=== PATIENT | male | born 1940 | race Caucasian/White ===

== ENCOUNTER 2017-05-28 20:15 | Inpatient (IN) | payer MEDICARE, MEDICAID ==
[~2017-05-28] VITALS: Ht 165.1 cm; Wt 79.4 kg
[2017-05-28] MEDS ORDERED: AMLO10TA2 PO (20:34)
[2017-05-28] MEDS ORDERED: BENA20TA2 PO (20:34)
[2017-05-28] MEDS ORDERED: LORA2TAB PO (20:34)
[2017-05-28] MEDS ORDERED: MEMA10TA PO (20:34)
[2017-05-28] MEDS ORDERED: ZOLP10TA2 PO (20:34)
[2017-05-28] MEDS ORDERED: LEVE500T20 PO (20:34)
--- NOTE | 2017-05-28 20:40 | NUR ---
DR. CROW AT BEDSIDE FOR MSE.
[2017-05-28] MEDS ORDERED: IV NORMAL SALINE 500 ML BAG IV ONE (20:45)
[2017-05-28 21:09] LABS: HEMATOCRIT 34.8 % (36.7-47.1); HEMOGLOBIN 11.6 g/dL (12.5-16.3); LYMPHOCYTES # (AUTO) 1.7 K/uL (20.0-40.0); LYMPHOCYTES % (AUTO) 39.6 % (20.5-51.5); MEAN CORPUSCULAR HEMOGLOBIN 28.6 uug (23.8-33.4); MEAN CORPUSCULAR HGB CONC 33 g/dL (32.5-36.3); MEAN CORPUSCULAR VOLUME 85.6 fL (73.0-96.2); MONOCYTES # (AUTO) 0.6 K/uL (2.0-10.0); MONOCYTES % (AUTO) 14.4 % (0.0-11.0); NEUTROPHILS # (AUTO) 1.9 K/uL (1.8-8.9); PLATELET COUNT (AUTO) 236 K/uL (152-348); RED BLOOD CELL COUNT(AUTO) 4.06 MIL/uL (4.06-5.63); WHITE BLOOD COUNT (AUTO) 4.2 K/uL (3.6-10.2)
[2017-05-28 21:23] LABS: CARBON DIOXIDE 26 mmol/L (21-32); CHLORIDE 98 mmol/L (98-107); CREATININE 1.2 mg/dL (0.6-1.3); ETHANOL < 3 MG/DL (0-0); GLUCOSE 95 mg/dL (74-106); POTASSIUM 4.5 mmol/L (3.5-5.1); UREA NITROGEN, BLOOD 11 mg/dL (7-18)
[2017-05-28 21:39] LABS: ACETAMINOPHEN < 2.0 ug/mL (10-30); ALANINE AMINOTRANSFERASE 30 U/L (16-63); ALKALINE PHOSPHATASE 74 U/L (50-136); ASPARTATE AMINOTRANSFERASE 43 U/L (15-37); BILIRUBIN,DIRECT 0.1 mg/dL (0.0-0.2); BILIRUBIN,TOTAL 0.3 mg/dL (0.2-1.0); THYROID STIMULATING HORMONE 2.404 mIU/mL (0.358-3.740); TOTAL PROTEIN, SERUM 7.6 g/dL (6.4-8.2)
[2017-05-28 21:52] LABS: *BILIRUBIN,URIN NEGATIVE (NEGATIVE); *BLOOD, URINE Trace-intact (NEGATIVE); *CLARITY,URINE CLEAR (CLEAR); *COLOR,URINE YELLOW (YELLOW); *KETONES,URINE NEGATIVE (NEGATIVE); *PROTEIN,URINE NEGATIVE (NEGATIVE); *UROBILINOGEN,URINE 0.2 E.U./dl (NORMAL); LEUKOCYTE ESTERASE ,URINE NEGATIVE (NEGATIVE); NITRITE, URINE NEGATIVE (NEGATIVE); PH,URINE 6.5 (5.0-8.0); UGLUCOSE NEGATIVE (NEGATIVE)
[2017-05-28 22:09] LABS: BACTERIA,URINE NONE SEEN /HPF (NONE SEEN); RBC,URINE 0-3 /HPF (0-3); SQUAMOUS EPITHELIAL CELL,UR FEW /HPF (NONE SEEN); WBC,URINE 0-3 /HPF (0-3)
[2017-05-28] MEDS ORDERED: ONDANSETRON 4 MG/2 ML VIAL IV PRN (22:15)
[2017-05-28] MEDS ORDERED: HYDROCODONE/APAP 5-325MG TABLET PO PRN (22:15)
[2017-05-28] MEDS ORDERED: Z GUARD REMEDY PASTE 57 GM TUBE TOP PRN (22:15)
[2017-05-28] MEDS ORDERED: CLONIDINE HCL 0.1 MG TABLET PO PRN (22:15)
[2017-05-28] MEDS ORDERED: Medication Not On Formulary EA (Zolpidem Tartrate (Ambien) 10 MG) PO PRN (22:15)
[2017-05-28] MEDS ORDERED: MAGNESIUM HYDROXIDE 30 ML LIQUID UDC PO PRN (22:15)
[2017-05-28] MEDS ORDERED: ACETAMINOPHEN 325 MG TABLET PO PRN (22:15)
--- NOTE | 2017-05-28 22:25 | NUR ---
GAVE REPORT TO GARRICK RYAN. PENDING TRANSFER TO TELE UNIT.
[2017-05-28] MEDS ORDERED: IV NORMAL SALINE 1000 ML BAG IV ONE (22:30)
--- NOTE | 2017-05-28 22:36 | NUR ---
ENDORSED TO FLOOR NURSE TO COMPLETE NS BOLUS INFUSION.
--- NOTE | 2017-05-28 22:40 | NUR ---
PT TRANSFERRED TO TELE UNIT.
--- NOTE | 2017-05-28 22:40 | NUR ---
Received pt to TELE unit. Orientated to the unit and use of call light. Patient A&Ox1 to name only.
[2017-05-28] MEDS: LORAZEPAM 2 MG/1 ML VIAL IV PRN (23:48)
[2017-05-28] MEDS: ASPIRIN 81 MG TAB.CHEW PO SCH (23:48)
[2017-05-29] VITALS: BP 162/85
[2017-05-29 00:36] LABS: *AMPHETAMINE, URINE NEGATIVE (NEGATIVE); *BARBITURATE, URINE NEGATIVE (NEGATIVE); *CANNABINOID, URINE NEGATIVE (NEGATIVE); *COCCAINE, URINE NEGATIVE (NEGATIVE); *OPIATE, URINE NEGATIVE (NEGATIVE); *PHENCYCLIDINE SCREEN,URINE NEGATIVE (NEGATIVE)
[2017-05-29] MEDS: IV NS 1000 ML 1,000 ML IV PRN (00:45)
[2017-05-29 04:00] VITALS: BP 187/86
--- NOTE | 2017-05-29 06:40 | NUR ---
Pt only slept 2 hours after Ativan was given. Has been up all night stating he's hungry but refusing any snacks we are offering him. Says he doesn't like milk or bread. Has ripped off Tele leads multiple times. At this time we placed them on his back and he has not pulled it off. Pt pulled off his IV on the left hand. Inserted a new IV to the right forearm. Continues on IV fluids. Pt has to urinate a lot and is always ripping off his diaper and trying to use the urinal, but cannot use it himself. Needs 1 person assist to help him use the urinal. Bed alarm on, call light within reach.
[2017-05-29 06:53] LABS: CARBON DIOXIDE 27 mmol/L (21-32); CHLORIDE 99 mmol/L (98-107); CHOLESTEROL 197 mg/dL (<200); GLUCOSE 83 mg/dL (74-106); HDL CHOLESTEROL 69 mg/dL (40-60); MAGNESIUM 1.9 mg/dL (1.8-2.4); PHOSPHOROUS 3.2 mg/dL (2.5-4.9); POTASSIUM 3.5 mmol/L (3.5-5.1); TRIGLYCERIDES 99 MG/DL (30-150); UREA NITROGEN, BLOOD 7 mg/dL (7-18)
[2017-05-29 06:57] LABS: BASOPHILS % (AUTO) 0.6 % (0.0-2.0); EOSINOPHILS % (AUTO) 1.2 % (0.0-7.0); LYMPHOCYTES # (AUTO) 1.5 K/uL (20.0-40.0); LYMPHOCYTES % (AUTO) 45.6 % (20.5-51.5); MEAN CORPUSCULAR HEMOGLOBIN 28.9 uug (23.8-33.4); MEAN CORPUSCULAR HGB CONC 34 g/dL (32.5-36.3); MEAN CORPUSCULAR VOLUME 85.7 fL (73.0-96.2); MONOCYTES # (AUTO) 0.4 K/uL (2.0-10.0); MONOCYTES % (AUTO) 13.3 % (0.0-11.0); NEUTROPHILS # (AUTO) 1.3 K/uL (1.8-8.9); NEUTROPHILS % (AUTO) 39.3 % (38.5-71.5); PLATELET COUNT (AUTO) 264 K/uL (152-348); RED BLOOD CELL COUNT(AUTO) 4.53 MIL/uL (4.06-5.63); WHITE BLOOD COUNT (AUTO) 3.3 K/uL (3.6-10.2)
[2017-05-29 07:11] LABS: HEMATOCRIT 38.8 % (36.7-47.1); HEMOGLOBIN 13.1 g/dL (12.5-16.3)
[2017-05-29] MEDS ORDERED: ZOLPIDEM 5 MG TABLET PO PRN (07:45)
--- NOTE | 2017-05-29 07:47 | NUR ---
Received pt in bed awake, alert and oriented to name only. Noted pt to be tapping both feet. No immediate s/s of pain, distress, discomfort or SOB. Morning BP was 178/77, HR 64 PRN Catapres given
[2017-05-29] MEDS: BENAZEPRIL HCL 20 MG TABLET PO SCH ×2 (09:00→09:28)
[2017-05-29] MEDS: AMLODIPINE 10 MG TABLET PO SCH ×2 (09:00→09:28)
--- NOTE | 2017-05-29 09:12 | NUR ---
Pt is sitting in the chair watching, state "i am bored, i need HBO". No immediate s/s of pain, distress, discomfort, or SOB.
[2017-05-29] MEDS: LEVETIRACETAM 500 MG TABLET PO SCH ×2 (09:24→15:45)
[2017-05-29] MEDS: ASPIRIN 81 MG TAB.CHEW PO SCH (09:24)
[2017-05-29] MEDS: MEMANTINE HCL 10 MG TABLET PO SCH ×2 (09:24→15:44)
--- NOTE | 2017-05-29 10:30 | NUR ---
Caregiver by bedside brought pt some jello and noted pt eating on his own. Neuro consult took place. Psychological consult made. Pt is sitting up in chair with no immediate distress
[2017-05-29 11:16] VITALS: BP 151/81
[2017-05-29 15:04] VITALS: BP 142/78
[2017-05-29] MEDS: LORAZEPAM 2 MG/1 ML VIAL IV PRN (19:45)
--- NOTE | 2017-05-29 19:45 | NUR ---
PATIENT AWAKE, SITTING IN CHRISTIN-CHAIR. APPEARS AGITATED. PATIENT PULLED OUT IV HEPLOCK. PATIENT IS ALERT TO SELF ONLY. VERY CONFUSED AND DISORIENTED. NEW IV INSERTED TO RIGHT AC #20 GAUGE. PATIENT GIVEN ATIVAN 1MG IV PRN PER USABILITY SPECIALIST. VS WNL. PATIENT DENIES PAIN OR DISCOMFORT. NO FACIAL GRIMACE NOTED. NO RESP. DISTRESS NOTED. CALL LIGHT IN REACH. ALL NEEDS ATTENDED. WILL CONTINUE TO MONITOR AND ASSESS.
[2017-05-29 20:00] VITALS: BP 140/68
[2017-05-29] MEDS: ATORVASTATIN 20 MG TABLET PO SCH (21:02)
--- NOTE | 2017-05-29 22:00 | NUR ---
PATIENT ASSISTED BACK TO BED. BED ALARM ON. IVF INFUSING WELL. CALL LIGHT IN REACH. ALL NEEDS ATTENDED. WILL CONTINUE TO MONITOR.
[2017-05-30] MEDS: IV NS 1000 ML 1,000 ML IV PRN ×2 (01:39→16:37)
[2017-05-30 05:08] VITALS: BP 153/76
--- NOTE | 2017-05-30 06:32 | NUR ---
PATIENT ASLEEP IN BED. SLEPT WELL. IVF INFUSING WELL. BED ALARM ON. CALL LIGHT IN REACH. ALL NEEDS ATTENDED. WILL CONTINUE TO MONITOR.
--- NOTE | 2017-05-30 07:04 | NUR ---
PATIENT VERY UNSTABLE FOR MRI PER NURSE TORSTEN,CHANGE OF SHIFT SHE MAKE SURE NURSE HENRIETTA AND DR. BEAUCHAMP WILL BE IMFORMED.
--- NOTE | 2017-05-30 07:30 | NUR ---
PATIENT RECEIVED ASLEEP IN BED.. IVF INFUSING WELL. BED ALARM ON. CALL LIGHT IN REACH. ALL NEEDS ATTENDED. WILL CONTINUE TO MONITOR.
[2017-05-30] MEDS: BENAZEPRIL HCL 20 MG TABLET PO SCH (08:11)
[2017-05-30] MEDS: ASPIRIN 81 MG TAB.CHEW PO SCH (08:11)
[2017-05-30] MEDS: AMLODIPINE 10 MG TABLET PO SCH (08:11)
[2017-05-30] MEDS: MEMANTINE HCL 10 MG TABLET PO SCH ×2 (08:11→16:27)
[2017-05-30] MEDS: LEVETIRACETAM 500 MG TABLET PO SCH ×2 (08:11→16:27)
[2017-05-30 11:07] VITALS: BP 121/64
--- NOTE | 2017-05-30 13:30 | NUR ---
PT IS CONFUSED REFUSING TO GO FOR MRI DR BEAUCHAMP MADE AWARE.
[2017-05-30 15:00] VITALS: BP 123/61
[2017-05-30 19:40] VITALS: BP 134/77
--- NOTE | 2017-05-30 20:00 | NUR ---
PATIENT AWAKE IN BED. ALERT TO SELF ONLY, CONFUSED. NEEDS REDIRECTION. DENIES PAIN OR DISCOMFORT. NO FACIAL GRIMACE NOTED. NO RESP. DISTRESS NOTED. VSS. IVF INFUSING WELL TO RIGHT UPPER ARM #20 GAUGE. BED ALARM ON. CALL LIGHT IN REACH. ALL NEEDS ATTENDED. WILL CONTINUE TO MONITOR AND ASSESS.
[2017-05-30] MEDS: ATORVASTATIN 20 MG TABLET PO SCH (20:27)
[2017-05-30] MEDS: LORAZEPAM 2 MG/1 ML VIAL IV PRN (21:56)
--- NOTE | 2017-05-30 22:00 | NUR ---
PATIENT APPEARS AGITATED. TRYING TO GET OOB AND PULLING ON IV. PATIENT GIVEN ATIVAN 1MG IV PER PER ADVERTISING MANAGER. BED ALARM ON. WILL CONTINUE TO MONITOR AND ASSESS.
--- NOTE | 2017-05-30 23:00 | NUR ---
PATIENT ASLEEP IN BED. BED ALARM ON. NO RESP. DISTRESS NOTED. WILL CONTINUE TO MONITOR.
[2017-05-31 04:35] VITALS: BP 153/72
--- NOTE | 2017-05-31 05:34 | NUR ---
PATIENT ASLEEP IN BED. EASILY AROUSABLE. SLEPT AT INTERVALS. IVF INFUSING WELL. BED ALARM ON. CALL LIGHT IN REACH. ALL NEEDS ATTENDED. WILL CONTINUE TO MONITOR.
[2017-05-31] MEDS: IV NS 1000 ML 1,000 ML IV PRN (07:21)
[2017-05-31] MEDS: ASPIRIN 81 MG TAB.CHEW PO SCH (08:01)
[2017-05-31] MEDS: MEMANTINE HCL 10 MG TABLET PO SCH ×2 (08:01→16:19)
[2017-05-31] MEDS: BENAZEPRIL HCL 20 MG TABLET PO SCH (08:01)
[2017-05-31] MEDS: LEVETIRACETAM 500 MG TABLET PO SCH ×2 (08:01→16:19)
[2017-05-31] MEDS: AMLODIPINE 10 MG TABLET PO SCH (08:02)
[2017-05-31 11:05] VITALS: BP 136/64
[2017-05-31 15:19] VITALS: BP 158/79
--- NOTE | 2017-05-31 19:15 | NUR ---
RECEIVED PT AWAKE, ALERT , ORIENTED X2. PT SHOWS NO SIGNS OF DISTRESS. PT NO IV ACCESS. CALL LIGHT WITHIN REACH. BED ALARM ON AND IN LOW POSITION. WILL CONTINUE TO MONITOR.
[2017-05-31 20:12] VITALS: BP 130/65
[2017-05-31] MEDS: ATORVASTATIN 20 MG TABLET PO SCH (20:43)
[2017-05-31] MEDS ORDERED: ATORVASTATIN 20 MG TABLET PO SCH (21:00)
[2017-06-01 05:19] VITALS: BP 125/62
--- NOTE | 2017-06-01 06:12 | NUR ---
PT SLEPT THROUGHOUT THE SHIFT. PT SHOWS NO SIGNS OF DISTRESS.CHARGE NURSE AWARE THAT PT HAS NO IV ACCESS. PT VITAL SIGNS WITHIN NORMAL LIMIT. PRESCRIBED MEDICATION GIVEN AND PT TOLERATED IT WELL. CALL LIGHT WITHIN REACH, BED ALARM ON AND IN LOW POSITION. SIDE RAILSX2. WILL ENDORSE TO DAYSHIFT NURSE.
--- NOTE | 2017-06-01 07:30 | NUR ---
Received report from night order selector nurse, patient in bed sleeping, no distress noted at this time, bed in low position, side rails upx2, bed alarm on.
[2017-06-01] MEDS: MEMANTINE HCL 10 MG TABLET PO SCH ×2 (08:34→16:17)
[2017-06-01] MEDS: LEVETIRACETAM 500 MG TABLET PO SCH ×2 (08:34→16:17)
[2017-06-01] MEDS: AMLODIPINE 10 MG TABLET PO SCH (08:34)
[2017-06-01] MEDS: ASPIRIN 81 MG TAB.CHEW PO SCH (08:34)
[2017-06-01] MEDS: BENAZEPRIL HCL 20 MG TABLET PO SCH (08:35)
[2017-06-01 11:27] VITALS: BP 143/71
[2017-06-01] MEDS ORDERED: ATOR20TA PO (13:10)
[2017-06-01] MEDS ORDERED: ASPI81TA31 PO (13:10)
[2017-06-01 15:47] VITALS: BP 152/78
--- NOTE | 2017-06-01 18:51 | NUR ---
Patient was discharged after report called to [place], ([place]). Patient has no distress, all needs met, discharge education given to patient.
== END 2017-06-01 18:55 | DRG 640 ==
LOC: ER 20:18 → TELE 22:29 → MED 05-29 16:42
PROVIDERS: ADMIT Internal Medicine; ATTEND Internal Medicine
DX: E86.0 Dehydration (principal); G93.40 Encephalopathy, unspecified; G30.9 Alzheimer's disease, unspecified; G40.909 Epilepsy, unspecified, not intractable, without status epilepticus; F02.80 Dementia in other diseases classified elsewhere, unspecified severity, without behavioral disturbance, psychotic disturbance, mood disturbance, and anxiety; E87.1 Hypo-osmolality and hyponatremia; Z86.73 Personal history of transient ischemic attack (TIA), and cerebral infarction without residual deficits; R32 Unspecified urinary incontinence; E78.5 Hyperlipidemia, unspecified; I10 Essential (primary) hypertension; Z79.82 Long term (current) use of aspirin; Z79.899 Other long term (current) drug therapy
CPT/HCPCS: 36415; 70030-TC; 70450; 71045; 80307; 83605; 83735; 84100; 84443; 85025; 85730; 87040; 93005; A4663; G0480; G0480-TC; J2060; J7030; J7040

== ENCOUNTER 2017-06-21 14:13 | Inpatient (IN) | payer MEDICAID, MEDICARE ==
[~2017-06-21] VITALS: Ht 182.9 cm; Wt 79.4 kg
[~2017-06-21 14:13] MED LIST: AMLO10TA2 PO; ASPI81TA31 PO; ATOR20TA PO; BENA20TA2 PO; LEVE500T20 PO; LORA2TAB PO; MEMA10TA PO
[2017-06-21] MEDS ORDERED: IV NORMAL SALINE 1000 ML BAG IV ONE (14:30)
[2017-06-21] MEDS ORDERED: ZOLP10TA2 PO (14:38)
[2017-06-21] MEDS ORDERED: PROSTAT SF PO (14:38)
[2017-06-21] MEDS ORDERED: MULT-213 PO (14:38)
[2017-06-21] MEDS ORDERED: LORA-259 PO (14:38)
[2017-06-21] MEDS ORDERED: ASCO500C16 PO (14:38)
[2017-06-21] MEDS ORDERED: LACT-215 PO (14:38)
[2017-06-21 14:44] LABS: BASOPHILS % (AUTO) 0.4 % (0.0-2.0); EOSINOPHILS % (AUTO) 0.1 % (0.0-7.0); HEMATOCRIT 35.7 % (36.7-47.1); HEMOGLOBIN 11.8 g/dL (12.5-16.3); LYMPHOCYTES % (AUTO) 16.5 % (20.5-51.5); MEAN CORPUSCULAR HEMOGLOBIN 28.3 uug (23.8-33.4); MEAN CORPUSCULAR HGB CONC 33 g/dL (32.5-36.3); MEAN CORPUSCULAR VOLUME 85.4 fL (73.0-96.2); MONOCYTES # (AUTO) 0.4 K/uL (2.0-10.0); NEUTROPHILS # (AUTO) 4.7 K/uL (1.8-8.9); PLATELET COUNT (AUTO) 220 K/uL (152-348); RED BLOOD CELL COUNT(AUTO) 4.18 MIL/uL (4.06-5.63); WHITE BLOOD COUNT (AUTO) 6.2 K/uL (3.6-10.2)
[2017-06-21 14:54] LABS: CARBON DIOXIDE 27 mmol/L (21-32); CHLORIDE 102 mmol/L (98-107); CREATININE 1.1 mg/dL (0.6-1.3); GLUCOSE 113 mg/dL (74-106); POTASSIUM 3.9 mmol/L (3.5-5.1); UREA NITROGEN, BLOOD 18 mg/dL (7-18)
[2017-06-21 15:08] LABS: ALANINE AMINOTRANSFERASE 32 U/L (16-63); ALKALINE PHOSPHATASE 81 U/L (50-136); ASPARTATE AMINOTRANSFERASE 32 U/L (15-37); BILIRUBIN,DIRECT 0.1 mg/dL (0.0-0.2); BILIRUBIN,TOTAL 0.4 mg/dL (0.2-1.0); TOTAL PROTEIN, SERUM 8.1 g/dL (6.4-8.2)
[2017-06-21] MEDS ORDERED: ACETAMINOPHEN 325 MG TABLET PO PRN (15:30)
[2017-06-21] MEDS ORDERED: ONDANSETRON 4 MG/2 ML VIAL IV PRN (15:30)
[2017-06-21] MEDS ORDERED: LORAZEPAM 0.5 MG TABLET PO PRN (15:45)
[2017-06-21] MEDS ORDERED: Medication Not On Formulary EA (Zolpidem Tartrate (Ambien) 10 MG) PO PRN (15:45)
[2017-06-21 16:00] VITALS: BP 130/54
[2017-06-21] MEDS ORDERED: LORAZEPAM 1 MG TABLET PO PRN (16:00)
[2017-06-21] MEDS ORDERED: ZOLPIDEM 5 MG TABLET PO PRN ×2 (16:00→20:30)
[2017-06-21] MEDS: IV D5/ 0.9% NACL 1,000 ML IV PRN (16:29)
[2017-06-21] MEDS ORDERED: ALBUTEROL SULFATE 2.5 MG/3 ML NEBU NEB PRN (16:45)
[2017-06-21] MEDS ORDERED: IPRATROPIUM BROMIDE 0.5 MG/2.5 ML NEBU NEB PRN (16:45)
[2017-06-21] MEDS ORDERED: PROSTAT SF PO SCH (17:00)
[2017-06-21] MEDS ORDERED: [UNRECOGNIZED DRUG - OTHER] PO SCH (17:00)
[2017-06-21] MEDS ORDERED: MEMANTINE HCL 10 MG TABLET PO SCH (17:00)
[2017-06-21] MEDS ORDERED: LACTOSE FREE FOOD PO SCH (17:00)
[2017-06-21] MEDS ORDERED: ALBUTEROL SULFATE 2.5 MG/ 0.5 ML NEBU NEB PRN (17:00)
[2017-06-21] MEDS: PROTEIN SUPPLEMENT (PROSTAT) 30 ML LIQUID PO SCH (17:30)
[2017-06-21 18:22] LABS: ABG BASE EXCESS -0.8 mmol/L; ABG HCO3 23.9 mmol/L; ABG PCO2 39.7 mmHg (35.0-45.0); ABG PH 7.397 (7.350-7.450); ABG PO2 97.8 mmHg (75.0-100.0); ABG SITE RIGHT RADIAL; COHb 0.9 % (0.5-1.5); MetHb 0.3 % (0.0-1.5); VENT MODE Nasal Cannula
[2017-06-21] MEDS ORDERED: LORAZEPAM 2 MG/1 ML VIAL IV PRN (19:15)
[2017-06-21] MEDS ORDERED: ZIPRASIDONE MESYLATE 20 MG VIAL IM ONE (19:45)
[2017-06-21] MEDS ORDERED: ZIPRASIDONE MESYLATE 20 MG VIAL IM PRN (20:30)
[2017-06-21] MEDS: ENOXAPARIN SODIUM 30 MG/0.3 ML DISP.SYRIN SUBCUT SCH (20:59)
[2017-06-21] MEDS: LEVETIRACETAM 500 MG TABLET PO SCH (21:40)
[2017-06-21] MEDS: ATORVASTATIN 20 MG TABLET PO SCH (21:40)
[2017-06-21] MEDS: MEMANTINE HCL 5 MG TABLET PO SCH (21:40)
[2017-06-22 04:00] VITALS: BP 155/79
[2017-06-22] MEDS: PANTOPRAZOLE SODIUM 40 MG TABLET.DR PO SCH (06:33)
[2017-06-22] MEDS: IV D5/ 0.9% NACL 1,000 ML IV PRN ×2 (06:45→21:12)
[2017-06-22 07:02] LABS: BASOPHILS % (AUTO) 0.6 % (0.0-2.0); EOSINOPHILS # (AUTO) 0.1 K/uL (0.0-0.7); EOSINOPHILS % (AUTO) 0.9 % (0.0-7.0); HEMATOCRIT 35.6 % (36.7-47.1); HEMOGLOBIN 11.9 g/dL (12.5-16.3); LYMPHOCYTES # (AUTO) 1.7 K/uL (20.0-40.0); LYMPHOCYTES % (AUTO) 27.3 % (20.5-51.5); MEAN CORPUSCULAR HGB CONC 34 g/dL (32.5-36.3); MEAN CORPUSCULAR VOLUME 86.6 fL (73.0-96.2); MONOCYTES # (AUTO) 0.6 K/uL (2.0-10.0); MONOCYTES % (AUTO) 9.2 % (0.0-11.0); NEUTROPHILS # (AUTO) 3.8 K/uL (1.8-8.9); PLATELET COUNT (AUTO) 212 K/uL (152-348); RED BLOOD CELL COUNT(AUTO) 4.11 MIL/uL (4.06-5.63); WHITE BLOOD COUNT (AUTO) 6.1 K/uL (3.6-10.2)
[2017-06-22 07:09] LABS: ALANINE AMINOTRANSFERASE 28 U/L (16-63); ALKALINE PHOSPHATASE 70 U/L (50-136); ASPARTATE AMINOTRANSFERASE 29 U/L (15-37); BILIRUBIN,TOTAL 0.4 mg/dL (0.2-1.0); CARBON DIOXIDE 27 mmol/L (21-32); CHLORIDE 108 mmol/L (98-107); CHOLESTEROL 136 mg/dL (<200); CREATININE 0.9 mg/dL (0.6-1.3); GLUCOSE 113 mg/dL (74-106); HDL CHOLESTEROL 58 mg/dL (40-60); MAGNESIUM 2.1 mg/dL (1.8-2.4); POTASSIUM 4.1 mmol/L (3.5-5.1); TOTAL PROTEIN, SERUM 7.7 g/dL (6.4-8.2); TRIGLYCERIDES 80 MG/DL (30-150); UREA NITROGEN, BLOOD 10 mg/dL (7-18)
[2017-06-22 07:18] LABS: THYROID STIMULATING HORMONE 0.847 mIU/mL (0.358-3.740)
[2017-06-22 08:00] VITALS: BP 134/72
[2017-06-22] MEDS ORDERED: ENSURE ENLIVE (VAN) 240 ML LIQUID PO SCH (08:00)
[2017-06-22] MEDS: PROTEIN SUPPLEMENT (PROSTAT) 30 ML LIQUID PO SCH ×3 (08:27→17:22)
[2017-06-22] MEDS: LEVETIRACETAM 500 MG TABLET PO SCH ×2 (08:28→21:00)
[2017-06-22] MEDS: MEMANTINE HCL 5 MG TABLET PO SCH ×2 (08:28→21:00)
[2017-06-22] MEDS: MULTIVIT, IRON, MIN NO. 8, FA TABLET PO SCH (08:28)
[2017-06-22] MEDS: ASPIRIN 81 MG TAB.CHEW PO SCH (08:28)
[2017-06-22] MEDS: ASCORBIC ACID 500 MG TABLET PO SCH (08:28)
[2017-06-22] MEDS: BENAZEPRIL HCL 20 MG TABLET PO SCH (08:28)
[2017-06-22] MEDS: AMLODIPINE 10 MG TABLET PO SCH (08:29)
[2017-06-22] MEDS: ENSURE CLEAR 240 ML LIQUID (MIX BERRY) PO SCH ×3 (08:30→17:22)
[2017-06-22] MEDS ORDERED: Medication Not On Formulary EA (Multivitamins W-Minerals (Multivitamin With Minerals) 1 PO SCH (09:00)
[2017-06-22] MEDS ORDERED: Medication Not On Formulary EA (Ascorbic Acid (Vitamin C CAPSULE) 500 MG) PO SCH (09:00)
[2017-06-22 12:16] LABS: *BILIRUBIN,URIN NEGATIVE (NEGATIVE); *BLOOD, URINE Trace-intact (NEGATIVE); *CLARITY,URINE CLEAR (CLEAR); *COLOR,URINE YELLOW (YELLOW); *KETONES,URINE NEGATIVE (NEGATIVE); *PROTEIN,URINE NEGATIVE (NEGATIVE); *UROBILINOGEN,URINE 0.2 E.U./dl (NORMAL); LEUKOCYTE ESTERASE ,URINE NEGATIVE (NEGATIVE); NITRITE, URINE NEGATIVE (NEGATIVE); UGLUCOSE NEGATIVE (NEGATIVE)
[2017-06-22 12:43] VITALS: BP 144/83
[2017-06-22 13:02] LABS: BACTERIA,URINE NONE SEEN /HPF (NONE SEEN); SQUAMOUS EPITHELIAL CELL,UR FEW /HPF (NONE SEEN)
[2017-06-22 19:27] VITALS: BP 121/74
[2017-06-22] MEDS: ATORVASTATIN 20 MG TABLET PO SCH (21:00)
[2017-06-22] MEDS: ENOXAPARIN SODIUM 30 MG/0.3 ML DISP.SYRIN SUBCUT SCH (21:03)
[2017-06-23 04:43] VITALS: BP 156/83
[2017-06-23 06:38] LABS: BASOPHILS % (AUTO) 0.4 % (0.0-2.0); EOSINOPHILS # (AUTO) 0.1 K/uL (0.0-0.7); EOSINOPHILS % (AUTO) 1.5 % (0.0-7.0); HEMATOCRIT 33.4 % (36.7-47.1); HEMOGLOBIN 11.1 g/dL (12.5-16.3); LYMPHOCYTES # (AUTO) 1.7 K/uL (20.0-40.0); MEAN CORPUSCULAR HEMOGLOBIN 28.7 uug (23.8-33.4); MEAN CORPUSCULAR HGB CONC 33 g/dL (32.5-36.3); MEAN CORPUSCULAR VOLUME 86.5 fL (73.0-96.2); MONOCYTES # (AUTO) 0.6 K/uL (2.0-10.0); MONOCYTES % (AUTO) 10.8 % (0.0-11.0); NEUTROPHILS # (AUTO) 3.2 K/uL (1.8-8.9); NEUTROPHILS % (AUTO) 57.3 % (38.5-71.5); PLATELET COUNT (AUTO) 204 K/uL (152-348); RED BLOOD CELL COUNT(AUTO) 3.86 MIL/uL (4.06-5.63); WHITE BLOOD COUNT (AUTO) 5.6 K/uL (3.6-10.2)
[2017-06-23] MEDS: PANTOPRAZOLE SODIUM 40 MG TABLET.DR PO SCH (06:48)
[2017-06-23 06:53] LABS: ALANINE AMINOTRANSFERASE 26 U/L (16-63); ALKALINE PHOSPHATASE 68 U/L (50-136); ASPARTATE AMINOTRANSFERASE 24 U/L (15-37); BILIRUBIN,TOTAL 0.3 mg/dL (0.2-1.0); CARBON DIOXIDE 27 mmol/L (21-32); CHLORIDE 104 mmol/L (98-107); GLUCOSE 86 mg/dL (74-106); MAGNESIUM 1.8 mg/dL (1.8-2.4); PHOSPHOROUS 2.2 mg/dL (2.5-4.9); POTASSIUM 3.8 mmol/L (3.5-5.1); TOTAL PROTEIN, SERUM 7.2 g/dL (6.4-8.2); UREA NITROGEN, BLOOD 16 mg/dL (7-18)
[2017-06-23] MEDS: PROTEIN SUPPLEMENT (PROSTAT) 30 ML LIQUID PO SCH ×3 (08:00→17:25)
[2017-06-23] MEDS: ENSURE CLEAR 240 ML LIQUID (MIX BERRY) PO SCH ×4 (08:00→17:24)
[2017-06-23] MEDS: LORAZEPAM 2 MG/1 ML VIAL IV PRN ×2 (08:54→14:00)
[2017-06-23] MEDS ORDERED: NEUTRA PHOS PACKET PO ONE (10:30)
[2017-06-23] MEDS: MULTIVIT, IRON, MIN NO. 8, FA TABLET PO SCH (10:36)
[2017-06-23] MEDS: MEMANTINE HCL 5 MG TABLET PO SCH ×2 (10:36→21:01)
[2017-06-23] MEDS: ASPIRIN 81 MG TAB.CHEW PO SCH (10:36)
[2017-06-23] MEDS: LEVETIRACETAM 500 MG TABLET PO SCH ×2 (10:36→21:01)
[2017-06-23] MEDS: AMLODIPINE 10 MG TABLET PO SCH (10:37)
[2017-06-23] MEDS: ASCORBIC ACID 500 MG TABLET PO SCH (10:37)
[2017-06-23] MEDS: BENAZEPRIL HCL 20 MG TABLET PO SCH (10:37)
[2017-06-23 10:47] VITALS: BP 146/58
[2017-06-23 14:58] VITALS: BP 143/67
[2017-06-23 20:00] VITALS: BP 121/73
[2017-06-23] MEDS: ATORVASTATIN 20 MG TABLET PO SCH (21:01)
[2017-06-23] MEDS: ENOXAPARIN SODIUM 30 MG/0.3 ML DISP.SYRIN SUBCUT SCH (21:03)
[2017-06-24 06:16] VITALS: BP 146/70
[2017-06-24] MEDS: PANTOPRAZOLE SODIUM 40 MG TABLET.DR PO SCH (06:53)
[2017-06-24 07:01] LABS: ALANINE AMINOTRANSFERASE 23 U/L (16-63); ALKALINE PHOSPHATASE 66 U/L (50-136); ASPARTATE AMINOTRANSFERASE 24 U/L (15-37); BILIRUBIN,TOTAL 0.5 mg/dL (0.2-1.0); CARBON DIOXIDE 27 mmol/L (21-32); CHLORIDE 102 mmol/L (98-107); GLUCOSE 84 mg/dL (74-106); MAGNESIUM 1.7 mg/dL (1.8-2.4); PHOSPHOROUS 3.6 mg/dL (2.5-4.9); POTASSIUM 3.5 mmol/L (3.5-5.1); TOTAL PROTEIN, SERUM 7.1 g/dL (6.4-8.2); UREA NITROGEN, BLOOD 11 mg/dL (7-18)
[2017-06-24 07:28] LABS: BASOPHILS % (AUTO) 0.4 % (0.0-2.0); EOSINOPHILS # (AUTO) 0.1 K/uL (0.0-0.7); EOSINOPHILS % (AUTO) 2.4 % (0.0-7.0); HEMATOCRIT 33.9 % (36.7-47.1); HEMOGLOBIN 11.5 g/dL (12.5-16.3); LYMPHOCYTES # (AUTO) 1.8 K/uL (20.0-40.0); LYMPHOCYTES % (AUTO) 32.6 % (20.5-51.5); MEAN CORPUSCULAR HEMOGLOBIN 28.9 uug (23.8-33.4); MEAN CORPUSCULAR HGB CONC 34 g/dL (32.5-36.3); MEAN CORPUSCULAR VOLUME 85.5 fL (73.0-96.2); MONOCYTES # (AUTO) 0.6 K/uL (2.0-10.0); MONOCYTES % (AUTO) 10.3 % (0.0-11.0); NEUTROPHILS # (AUTO) 3.1 K/uL (1.8-8.9); NEUTROPHILS % (AUTO) 54.3 % (38.5-71.5); PLATELET COUNT (AUTO) 209 K/uL (152-348); RED BLOOD CELL COUNT(AUTO) 3.96 MIL/uL (4.06-5.63); WHITE BLOOD COUNT (AUTO) 5.6 K/uL (3.6-10.2)
[2017-06-24] MEDS: ASCORBIC ACID 500 MG TABLET PO SCH (08:16)
[2017-06-24] MEDS: ASPIRIN 81 MG TAB.CHEW PO SCH (08:16)
[2017-06-24] MEDS: LEVETIRACETAM 500 MG TABLET PO SCH ×2 (08:16→20:07)
[2017-06-24] MEDS: ENSURE CLEAR 240 ML LIQUID (MIX BERRY) PO SCH ×3 (08:16→17:08)
[2017-06-24] MEDS: MULTIVIT, IRON, MIN NO. 8, FA TABLET PO SCH (08:16)
[2017-06-24] MEDS: MEMANTINE HCL 5 MG TABLET PO SCH ×2 (08:16→20:07)
[2017-06-24] MEDS: AMLODIPINE 10 MG TABLET PO SCH (08:16)
[2017-06-24] MEDS: BENAZEPRIL HCL 20 MG TABLET PO SCH (08:16)
[2017-06-24] MEDS: PROTEIN SUPPLEMENT (PROSTAT) 30 ML LIQUID PO SCH ×3 (08:17→17:09)
[2017-06-24] MEDS ORDERED: MAGNESIUM SULFATE/D5W 100 ML IV SCH (11:15)
[2017-06-24] MEDS: IV D5/ 0.9% NACL 1,000 ML IV PRN (11:25)
[2017-06-24 11:59] VITALS: BP 157/91
[2017-06-24] MEDS ORDERED: CEFTRIAXONE 1 G in IV DEXTROSE 5% 50 ML IV SCH (12:00)
[2017-06-24] MEDS ORDERED: hydrALAZINE HCL 25 MG TABLET PO PRN (14:15)
[2017-06-24] MEDS ORDERED: HYDR25TA86 PO (14:22)
[2017-06-24] MEDS ORDERED: PANT40TA2 PO (14:22)
[2017-06-24] MEDS ORDERED: LACT1CAP57 PO (14:22)
[2017-06-24] MEDS ORDERED: CEPH500C2 PO (14:22)
[2017-06-24] MEDS ORDERED: ACET325T53 PO (14:22)
[2017-06-24 16:09] VITALS: BP 130/74
[2017-06-24] MEDS: LACTOBACILLUS RHAMNOSUS GG 1 EACH CAPSULE PO SCH ×2 (17:08→20:06)
[2017-06-24 20:00] VITALS: BP 146/76
[2017-06-24] MEDS: ENOXAPARIN SODIUM 30 MG/0.3 ML DISP.SYRIN SUBCUT SCH (20:05)
[2017-06-24] MEDS: ATORVASTATIN 20 MG TABLET PO SCH (20:05)
[2017-06-25] MEDS ORDERED: CEPHALEXIN MONOHYDRATE 500 MG CAPSULE PO SCH (06:00)
== END 2017-06-24 20:50 | DRG 640 ==
LOC: ER 14:16 → TELE 15:30 → MED 06-22 09:34
PROVIDERS: ADMIT Internal Medicine; ATTEND Internal Medicine
DX: E86.0 Dehydration (principal); J96.01 Acute respiratory failure with hypoxia; G92 Toxic encephalopathy; D68.59 Other primary thrombophilia; F02.81 Dementia in other diseases classified elsewhere, unspecified severity, with behavioral disturbance; E88.09 Other disorders of plasma-protein metabolism, not elsewhere classified; G30.9 Alzheimer's disease, unspecified; N39.0 Urinary tract infection, site not specified; E83.39 Other disorders of phosphorus metabolism; E83.42 Hypomagnesemia; D64.9 Anemia, unspecified; E78.5 Hyperlipidemia, unspecified; F41.1 Generalized anxiety disorder; Z86.73 Personal history of transient ischemic attack (TIA), and cerebral infarction without residual deficits; I10 Essential (primary) hypertension; G40.909 Epilepsy, unspecified, not intractable, without status epilepticus; M41.84 Other forms of scoliosis, thoracic region; F41.9 Anxiety disorder, unspecified; R73.9 Hyperglycemia, unspecified; F29 Unspecified psychosis not due to a substance or known physiological condition
CPT/HCPCS: 36415; 36600; 70030-TC; 70450; 71045; 83605; 83735; 84100; 84443; 85025; 85730; 87040; 87086; 93005; A4663; J0696; J1650; J2060; J3475; J3486; J3490; J7030; J7042; J7060

== ENCOUNTER 2017-06-24 20:53 | Inpatient (IN) | payer MEDICARE ==
[~2017-06-24] VITALS: Ht 167.6 cm; Wt 75.3 kg
[2017-06-24 20:35] VITALS: BP 159/85
[~2017-06-24 20:53] MED LIST changes: +ACET325T53 PO; +ASCO500C16 PO; +CEPH500C2 PO; +HYDR25TA86 PO; +LACT-215 PO; +LACT1CAP57 PO; +LORA-259 PO; -LORA2TAB PO; +MULT-213 PO; +PANT40TA2 PO; +PROSTAT SF PO; +ZOLP10TA2 PO
--- NOTE | 2017-06-24 21:00 | NUR ---
ADMISSION NOTES: 76 Y.O -MONTENEGRIN MALE BROUGHT TO MHU FROM MEDICAL SURGICAL FLOOR VIA WHEELCHAIR, ACCOMPLANIED BY MED SURG NURSE AND PATTERN GRADER CUTTER, Pt ON A 5150 HOLD FOR GD. ACCORDING TO THE HOLD, THE Pt IS UNABLE TO RECEIVE CARE FROM NURSES AND CAREGIVERS, HE BECOMES AGGRESSIVE AND COMBATIVE. HE IS CONFUSED TO WHY AND HERE HE IS. Pt REPORTS A SON, SONY, BUT IS NOWHERE LISTED ON THE FACE SHEET FROM THE PENITENTIARY FACILITY THAT THE Pt RESIDES. Pt's CAREGIVER HAS BEEN NOTIFIED THE THE Pt HAS BEEN CONFISED AND UNABLE TO COOPERATE WITH STAFF, AND THUS REQUIRES PSYCHIATRIC CARE. RN CONCURS WITH HOLD. ADVISEMENT AND PATIENT RIGHTS HANDBOOK GIVEN. UPON FACE TO FACE ASSESSMENT, Pt APPEARS TO REFLECT WHAT IS ON THE HOLD. Pt IS ALERT AND ORIENTED TO NAME, BUT NOT TO PLACE, TIME, AND EVENTS LEADING UP TO HIS CURRENT HOSPITALIZATION. Pt IS CONFUSED AND DISORIENTED, BUT ABLE TO RESPOND TO BASIC QUESTIONS ASKED BY NURSE. Pt WAS INITIALLY COOPERATIVE DURING ASSESSMENT, BUT BECAME RESTLESS AND ANXIOUS ASSESSMENT WENT ON. Pt DENIES SUICIDAL IDEATION AND AGREES TO CONTRACT FOR SAFETY WHILE IN THE UNIT. Pt STATES THAT WE CAN NOTIFY HIS SON, SONY, OF HIS HOSPITALIZATION, BUT THERE IS NO RECORD OF SUCH PERSON ON Pt REPORTS AVAILABLE. ASKED Pt IF WE CAN NOTIFY HIS CAREGIVER ON FILE, [place], AND Pt AGREED. WILL NOTIFY CAREGIVER AT A MORE APPROPRIATE TIME. Pt EXHIBITS A BLUNTED AFFECT AND DOES NOT MAINTAIN EYE CONTACT AT ALL TIMES DURING A CONVERSATION. Pt APPEARS UNKEMPT, BUT SKIN IS INTACT. Pt VERBALIZED UNDERSTANDING OF HOSPITALIZATION AND AGREES TO ACCEPT TREATMENT IN MHU. DR. HILL AND DR. NAPIER HAVE BEEN NOTIFIED OF ADMISSION, ORDERS RECEIVED. Pt ORIENTED TO UNIT, AND EDUCATED ON UNIT RULES. NO CONTRABANDS UPON ADMISSION, VALUABLES AND BELONGINGS WERE PLACED IN MHU LOCKER. VS STABLE, DENIES PAIN. Pt WAS INITIALLY BROUGHT TO BED BUT BECAME RESTLESS AND SHOUTING FOR NURSE 5 MINUTES LATER. Pt WAS PUT ON CHRISTIN-CHAIR AND BROUGHT TO DAY ROOM TO WATCH TV BUT ONCE AGAIN BECAME RESTLESS AND SHOUTED FOR NURSE ASKING TO BE PUT SOMEWHERE ELSE. Pt STATED HE WANTS TO LEAVE THE UNIT, WAS RE-ORIENTED BY NURSE WITH MINIMAL EFFECTIVENESS. Pt IS CURRENTLY IN CHRISTIN-CHAIR IN DAY ROOM AND BEING OBSERVED CLOSELY BY UNIT STAFF. WILL CLOSELY MONITOR Pt BEHAVIOR THROUGHOUT SHIFT.
[2017-06-24] MEDS ORDERED: TEMAZEPAM 7.5 MG CAPSULE PO PRN (21:30)
[2017-06-24] MEDS ORDERED: CLONAZEPAM 0.5 MG TABLET PO PRN (21:30)
[2017-06-24] MEDS ORDERED: ACETAMINOPHEN 325 MG TABLET PO PRN (22:15)
[2017-06-25] MEDS ORDERED: MAG HYDROX/AL HYDROX/SIMETH 30 ML LIQUID UDC PO PRN (04:15)
[2017-06-25] MEDS ORDERED: MAGNESIUM HYDROXIDE 30 ML LIQUID UDC PO PRN (04:15)
[2017-06-25 07:30] VITALS: BP 148/84
[2017-06-25] MEDS: PROTEIN SUPPLEMENT (PROSTAT) 30 ML LIQUID PO SCH ×3 (08:00→16:02)
[2017-06-25] MEDS: PANTOPRAZOLE SODIUM 40 MG TABLET.DR PO SCH (08:02)
[2017-06-25] MEDS ORDERED: LEVETIRACETAM 500 MG TABLET PO SCH (09:00)
[2017-06-25] MEDS: MULTIVIT, IRON, MIN NO. 8, FA TABLET PO SCH (09:00)
[2017-06-25] MEDS ORDERED: MEMANTINE HCL 10 MG TABLET PO SCH ×2 (09:00→17:00)
[2017-06-25] MEDS: ASPIRIN 81 MG TAB.CHEW PO SCH (09:00)
[2017-06-25] MEDS: AMLODIPINE 10 MG TABLET PO SCH ×2 (09:00→15:37)
[2017-06-25] MEDS: ASCORBIC ACID 500 MG TABLET PO SCH (09:00)
[2017-06-25] MEDS ORDERED: PROSTAT SF PO SCH (09:00)
[2017-06-25] MEDS ORDERED: [UNRECOGNIZED DRUG - OTHER] PO SCH (09:00)
[2017-06-25] MEDS: BENAZEPRIL HCL 20 MG TABLET PO SCH ×2 (09:00→15:37)
[2017-06-25] MEDS: LACTOBACILLUS RHAMNOSUS GG 1 EACH CAPSULE PO SCH ×2 (09:00→21:00)
[2017-06-25] MEDS ORDERED: LACTOSE FREE FOOD PO SCH (09:00)
--- NOTE | 2017-06-25 09:52 | NUR ---
Firearms Report: Automotive Technician Instructor completed and submitted [facility] Firearms Report on 06/25/17.
[2017-06-25] MEDS: ENSURE ENLIVE (VAN) 240 ML LIQUID PO SCH ×2 (12:00→16:02)
[2017-06-25 16:40] VITALS: BP 175/88
[2017-06-25] MEDS: QUETIAPINE FUMARATE 25 MG TABLET PO SCH (17:34)
--- NOTE | 2017-06-25 18:39 | NUR ---
1700: RECHECKED BP 127/65 PULSE 67.
--- NOTE | 2017-06-25 20:00 | NUR ---
RECEIVED PATIENT IN BED ASLEEP, BUT EASILY AROUSABLE. HE CONTINUE ON 1:1 SUPERVISION FOR SAFETY. HE IS NOTED A/O X 1 CONFUSED, DISORIENTED, REFUSED TO ANSWER ANY QUESTION. VISUAL HALLUCINATIONS NOTED (PATIENT STARRING AT THE [place]) HE MAKES BRIEF EYE CONTACT WITH STAFF. UNCOOPERATIVE, GUARDED. UNSTEADY GAIT. INCONTINENT OF BLADDER AND BOWEL. HOWEVER, NO AGGRESSIVE/COMBATIVE BX NOTED AT THIS TIME. SAFETY EMPHASIS. WILL CONTINUE TO MONITOR.
[2017-06-25 20:06] VITALS: BP 146/70
[2017-06-25] MEDS: ATORVASTATIN 20 MG TABLET PO SCH (21:00)
[2017-06-25] MEDS: LEVETIRACETAM 500 MG TABLET PO SCH (21:00)
[2017-06-25] MEDS: MEMANTINE HCL 5 MG TABLET PO SCH (21:00)
--- NOTE | 2017-06-25 22:00 | NUR ---
PATIENT PARTIALLY COMPLIANT WITH MEDICATION REGIMENT, DIET AND PLAN OF CARE. HE WAS ABLE TO TAKE KEPPRA AND NAMENDA WITH 4OZ ORANGE JUICE, BUT REFUSED CULTURELLE AND LIPITOR. MULTIPLE REDIRECTION GIVEN; HOWEVER INEFFECTIVE. WILL CONTINUE TO MONITOR
[2017-06-26] MEDS: PANTOPRAZOLE SODIUM 40 MG TABLET.DR PO SCH (06:51)
[2017-06-26 07:30] VITALS: BP 130/72
[2017-06-26] MEDS: ENSURE ENLIVE (VAN) 240 ML LIQUID PO SCH ×3 (08:34→17:23)
[2017-06-26] MEDS: ASCORBIC ACID 500 MG TABLET PO SCH (08:42)
[2017-06-26] MEDS: MEMANTINE HCL 5 MG TABLET PO SCH ×2 (08:43→20:54)
[2017-06-26] MEDS: ASPIRIN 81 MG TAB.CHEW PO SCH (08:43)
[2017-06-26] MEDS: QUETIAPINE FUMARATE 25 MG TABLET PO SCH ×2 (08:43→17:28)
[2017-06-26] MEDS: MULTIVIT, IRON, MIN NO. 8, FA TABLET PO SCH (08:43)
[2017-06-26] MEDS: BENAZEPRIL HCL 20 MG TABLET PO SCH (08:43)
[2017-06-26] MEDS: AMLODIPINE 10 MG TABLET PO SCH (08:43)
[2017-06-26] MEDS: LEVETIRACETAM 500 MG TABLET PO SCH ×2 (08:44→20:54)
[2017-06-26] MEDS: LACTOBACILLUS RHAMNOSUS GG 1 EACH CAPSULE PO SCH ×2 (08:44→20:54)
[2017-06-26] MEDS: PROTEIN SUPPLEMENT (PROSTAT) 30 ML LIQUID PO SCH ×3 (08:45→17:23)
[2017-06-26] MEDS: DIVALPROEX SPRINKLE 125 MG CAP.SPRINK PO SCH ×2 (10:20→20:54)
--- NOTE | 2017-06-26 14:01 | NUR ---
Initial Discharge Instructions: Patient was residing at [facility] [[address] [address]; ]. Spoke with pt's caregiver Audra Hairston ([phone]) who states that the patient was going to be discharged back home from the SNF prior to coming to [facility]. Per caregiver, patient can return home with her when ready for discharge [[id number] [place] [address]]. SW will continue to collaborate with pt, caregiver, and MD regarding appropriate discharge plans for the patient. SW will form a safe and proper discharge.
[2017-06-26 15:34] VITALS: BP 108/66
--- NOTE | 2017-06-26 18:30 | NUR ---
PT IS LAYING IN BED COMFORTABLY. PT IS CALM AND COOPERATIVE. NO S/S OF RESPIRATORY DISTRESS NOTED. NO PAIN NOTED. ALL NEEDS ARE MET. ALL SAFETY NEEDS ARE MET. 1:1 FOR SAFETY.
--- NOTE | 2017-06-26 20:32 | NUR ---
PATIENT IS ASLEEP IN BED, EASILY AROUSABLE. HE'S AAOX1, DENIES PAIN, NO ACUTE DISTRESS ON ASSESSMENT. 1: 1 SITTER AT BED SIDE WITH CLOSE MONITORING OF PATIENT FOR SAFETY.
[2017-06-26 20:50] VITALS: BP 116/56
[2017-06-26] MEDS: ATORVASTATIN 20 MG TABLET PO SCH (20:54)
[2017-06-27] MEDS: PANTOPRAZOLE SODIUM 40 MG TABLET.DR PO SCH (06:23)
--- NOTE | 2017-06-27 06:26 | NUR ---
Patient asleep most of the night, slept 8 hours on this shift. one episode of agitation. Prn meds given with effect. Patient seated in paris-chair by nurse station. Sitter closely monitoring patient
[2017-06-27 07:54] VITALS: BP 139/73
[2017-06-27] MEDS: ENSURE ENLIVE (VAN) 240 ML LIQUID PO SCH ×3 (08:18→16:51)
[2017-06-27] MEDS: PROTEIN SUPPLEMENT (PROSTAT) 30 ML LIQUID PO SCH ×3 (08:18→16:51)
[2017-06-27] MEDS: ASCORBIC ACID 500 MG TABLET PO SCH (09:00)
[2017-06-27] MEDS: LACTOBACILLUS RHAMNOSUS GG 1 EACH CAPSULE PO SCH ×2 (09:00→21:00)
[2017-06-27] MEDS: LEVETIRACETAM 500 MG TABLET PO SCH ×2 (09:00→20:50)
[2017-06-27] MEDS: DIVALPROEX SPRINKLE 125 MG CAP.SPRINK PO SCH ×2 (09:00→21:02)
[2017-06-27] MEDS: QUETIAPINE FUMARATE 25 MG TABLET PO SCH ×2 (09:00→16:51)
[2017-06-27] MEDS: MEMANTINE HCL 5 MG TABLET PO SCH ×2 (09:00→22:44)
[2017-06-27] MEDS: ASPIRIN 81 MG TAB.CHEW PO SCH (09:00)
[2017-06-27] MEDS: BENAZEPRIL HCL 20 MG TABLET PO SCH (09:00)
[2017-06-27] MEDS: MULTIVIT, IRON, MIN NO. 8, FA TABLET PO SCH (09:00)
[2017-06-27] MEDS: AMLODIPINE 10 MG TABLET PO SCH (09:00)
--- NOTE | 2017-06-27 09:00 | NUR ---
PATIENT REFUSED ORAL MEDICATION, OFFERED SEVERAL TIMES BUT STILL REFUSED, WILL CONTINUE TO MONITOR, CN AWARE.
[2017-06-27 15:57] VITALS: BP 145/92
--- NOTE | 2017-06-27 17:42 | NUR ---
STARTED TO BECOME AGITATED AND VERBALLY ABUSIVE, STATED "I DONT NEED TO EAT, I WANT TO GO HOME" EXPLAIN TO HIM THAT IT WILL BE BENEFICIAL FOR HIM IF HE EATS, THEN PATIENT THROW ALL HIS FOOD IN THE GARBAGE BAG. CHARGE NURSE AWARE.
--- NOTE | 2017-06-27 19:45 | NUR ---
RECEIVED PATIENT IN THE HALLWAY, SITTING UP IN A WHEELCHAIR IN THE HALLWAY. HE IS NOTED A/O X 1, ABLE TO MOVE AND TRANSFER WITH THE USE OF A WHEEL CHAIR. HE IS NOTED EASILY IRRITABLE, GUARDED, AND SUSPICIOUS. BLUNTED AFFECT, POOR HISTORIAN, POOR INSIGHT AND JUDGMENT. REFUSED TO ANSWER ANY QUESTION THAT WAS ASKED. REFUSED B/P AND REFUSED V/S. NO COMBATIVE/AGGRESSIVE BX NOTED AT THIS TIME. SAFETY EMPHASIS, WILL CONTINUE TO MONITOR CLOSELY.
[2017-06-27] MEDS: ATORVASTATIN 20 MG TABLET PO SCH (21:00)
--- NOTE | 2017-06-27 22:30 | NUR ---
PATIENT REFUSED LIPITOR AND CULTURELLE. HOWEVER, HE TOOK NAMENDA, KEPPRA AND DEPAKOTE. WILL CONTINUE TO MONITOR.
--- NOTE | 2017-06-27 23:00 | NUR ---
PATIENT CONTINUE UP SITING IN HIS WHEELCHAIR. HE CONTINUE PACING THE HALLWAY VIA WHEELCHAIR, HE IS REFUSING TO GO TO BED AND REFUSING TO TAKE A "SLEEPING PILL". HOWEVER, HE IS CALM, AND PLEASANT. WILL CONTINUE TO MONITOR.
--- NOTE | 2017-06-28 | NUR ---
PATIENT CONTINUE AWAKE. HE IS PACING THE HALLWAY VIA WHEELCHAIR, HE IS REFUSING TO GO TO BED AND REFUSING TO TAKE TEMAZEPAM 7.5MG PO PRN FOR INSOMNIA. HE REMAINS CALM, AND PLEASANT AT THIS TIME. WILL CONTINUE TO MONITOR.
--- NOTE | 2017-06-28 00:49 | NUR ---
PATIENT CONTINUE AWAKE. HE IS PACING THE HALLWAY VIA WHEELCHAIR, HE IS REFUSING TO GO TO BED AND REFUSING TO TAKE TEMAZEPAM 7.5MG PO PRN FOR INSOMNIA. HE REMAINS CALM, BUT EASILY IRRITABLE WHEN REDIRECTED. WILL CONTINUE TO MONITOR
--- NOTE | 2017-06-28 02:45 | NUR ---
PATIENT CONTINUE AWAKE. HE IS PACING THE HALLWAY VIA WHEELCHAIR, HE IS REFUSING TO GO TO BED AND REFUSING TO TAKE TEMAZEPAM 7.5MG PO PRN FOR INSOMNIA. HE REMAINS CALM, BUT EASILY IRRITABLE WHEN REDIRECTED. HE STATED, "I DON'T WANT TO SLEEP HERE WITH HIM (referring to his roommate's sitter). HE ALSO STATED, "HE IS [place]". PATIENT WAS OFFERED TO SLEEP IN ANOTHER ROOM; HOWEVER, HE REFUSED. WILL CONTINUE TO MONITOR
[2017-06-28] MEDS: PANTOPRAZOLE SODIUM 40 MG TABLET.DR PO SCH (07:00)
[2017-06-28 07:30] VITALS: BP 171/94
--- NOTE | 2017-06-28 07:43 | NUR ---
PATIENT DID NOT SLEEP LAST NIGHT. HE CONTINUE PACING THE HALLWAY VIA HIS WHEEL CHAIR. HE REFUSED PROTONIX QAM. WILL CONTINUE TO MONITOR.
[2017-06-28] MEDS: PROTEIN SUPPLEMENT (PROSTAT) 30 ML LIQUID PO SCH ×3 (08:00→16:39)
[2017-06-28] MEDS: ENSURE ENLIVE (VAN) 240 ML LIQUID PO SCH ×3 (08:00→16:39)
[2017-06-28] MEDS: LACTOBACILLUS RHAMNOSUS GG 1 EACH CAPSULE PO SCH ×2 (08:12→20:50)
[2017-06-28] MEDS: LEVETIRACETAM 500 MG TABLET PO SCH ×2 (08:13→20:51)
[2017-06-28] MEDS: MEMANTINE HCL 5 MG TABLET PO SCH ×2 (08:13→20:51)
[2017-06-28] MEDS: AMLODIPINE 10 MG TABLET PO SCH (08:13)
[2017-06-28] MEDS: DIVALPROEX SPRINKLE 125 MG CAP.SPRINK PO SCH ×2 (08:13→20:50)
[2017-06-28] MEDS: ASPIRIN 81 MG TAB.CHEW PO SCH (08:13)
[2017-06-28] MEDS: BENAZEPRIL HCL 20 MG TABLET PO SCH (08:13)
[2017-06-28] MEDS: ASCORBIC ACID 500 MG TABLET PO SCH (08:14)
[2017-06-28] MEDS: QUETIAPINE FUMARATE 25 MG TABLET PO SCH ×2 (08:14→16:39)
[2017-06-28] MEDS: MULTIVIT, IRON, MIN NO. 8, FA TABLET PO SCH (08:14)
[2017-06-28] MEDS: ATORVASTATIN 20 MG TABLET PO SCH (20:51)
[2017-06-29] MEDS: PANTOPRAZOLE SODIUM 40 MG TABLET.DR PO SCH (06:40)
--- NOTE | 2017-06-29 06:40 | NUR ---
GPS: REMAIN UNCOOPERATIVE WITH MEDICATIONS AND CARE. ASSISTED WITH ADL'S.PATIENT AMBULATE TO BATHROOM WITH ASSISTANCE. REFUSED SHOWER THIS MORNING.REFUSED AM PROTONIX 40 MG PO.CONTINUE MONITORING FOR SAFETY.SLEPT 8 HRS THROUGH THE NIGHT.CONTINUE PLAN OF CARE.
[2017-06-29 07:30] VITALS: BP 167/89
[2017-06-29] MEDS: ENSURE ENLIVE (VAN) 240 ML LIQUID PO SCH ×3 (08:00→17:00)
[2017-06-29] MEDS: PROTEIN SUPPLEMENT (PROSTAT) 30 ML LIQUID PO SCH ×3 (08:00→17:00)
[2017-06-29] MEDS: LACTOBACILLUS RHAMNOSUS GG 1 EACH CAPSULE PO SCH ×2 (08:16→20:18)
[2017-06-29] MEDS: DIVALPROEX SPRINKLE 125 MG CAP.SPRINK PO SCH ×2 (08:16→20:11)
[2017-06-29] MEDS: ASPIRIN 81 MG TAB.CHEW PO SCH (08:16)
[2017-06-29] MEDS: BENAZEPRIL HCL 20 MG TABLET PO SCH (08:16)
[2017-06-29] MEDS: LEVETIRACETAM 500 MG TABLET PO SCH ×2 (08:16→20:11)
[2017-06-29] MEDS: AMLODIPINE 10 MG TABLET PO SCH (08:17)
[2017-06-29] MEDS: MULTIVIT, IRON, MIN NO. 8, FA TABLET PO SCH (08:17)
[2017-06-29] MEDS: ASCORBIC ACID 500 MG TABLET PO SCH (08:17)
[2017-06-29] MEDS: MEMANTINE HCL 5 MG TABLET PO SCH ×2 (08:17→20:11)
[2017-06-29] MEDS: QUETIAPINE FUMARATE 25 MG TABLET PO SCH ×3 (08:17→17:00)
[2017-06-29] MEDS: hydrALAZINE HCL 25 MG TABLET PO PRN (10:13)
--- NOTE | 2017-06-29 13:37 | NUR ---
Pt seen and examined by Dr. Baltazar. Relayed pt continues to refuse medications and BP elevated to 167/89. Obtained new order for Clonidine 0.1mg TD patches Q7days. Noted and carried out.
[2017-06-29] MEDS ORDERED: CLONIDINE-TTS 1 PATCH TD SCH (13:45)
[2017-06-29 16:56] VITALS: BP 156/88
[2017-06-29 20:00] VITALS: BP 169/79
[2017-06-29] MEDS: ATORVASTATIN 20 MG TABLET PO SCH (20:11)
[2017-06-29 22:00] VITALS: BP 148/86
[2017-06-30] MEDS: PANTOPRAZOLE SODIUM 40 MG TABLET.DR PO SCH (06:16)
--- NOTE | 2017-06-30 06:17 | NUR ---
GPS: REMAIN CALM AND COOPERATIVE WITH CARE AND MEDICATIONS. REFUSED AM PO PROTONIX. ASSISTED WITH ADL'S. SLEPT 7 HRS THROUGH THE NIGHT. CONTINUE PLAN OF CARE.
[2017-06-30] MEDS: ENSURE ENLIVE (VAN) 240 ML LIQUID PO SCH ×3 (08:00→17:00)
[2017-06-30] MEDS: PROTEIN SUPPLEMENT (PROSTAT) 30 ML LIQUID PO SCH ×3 (08:00→17:00)
[2017-06-30] MEDS: hydrALAZINE HCL 25 MG TABLET PO PRN (08:11)
[2017-06-30] MEDS: ASPIRIN 81 MG TAB.CHEW PO SCH (08:58)
[2017-06-30] MEDS: AMLODIPINE 10 MG TABLET PO SCH (08:59)
[2017-06-30] MEDS: LEVETIRACETAM 500 MG TABLET PO SCH ×2 (08:59→21:19)
[2017-06-30] MEDS: MEMANTINE HCL 5 MG TABLET PO SCH ×2 (08:59→21:19)
[2017-06-30] MEDS: DIVALPROEX SPRINKLE 125 MG CAP.SPRINK PO SCH ×2 (08:59→21:19)
[2017-06-30] MEDS: BENAZEPRIL HCL 20 MG TABLET PO SCH (08:59)
[2017-06-30] MEDS: LACTOBACILLUS RHAMNOSUS GG 1 EACH CAPSULE PO SCH ×2 (08:59→21:00)
[2017-06-30] MEDS: MULTIVIT, IRON, MIN NO. 8, FA TABLET PO SCH (09:00)
[2017-06-30] MEDS: ASCORBIC ACID 500 MG TABLET PO SCH (09:00)
[2017-06-30] MEDS: QUETIAPINE FUMARATE 25 MG TABLET PO SCH ×3 (09:00→17:00)
[2017-06-30] MEDS ORDERED: CLONIDINE TTS 2 PATCH TD SCH (11:15)
[2017-06-30 15:07] VITALS: BP 168/102
--- NOTE | 2017-06-30 18:21 | NUR ---
GPS: Nursing Notes: Noncompliance with Medications: Patient is awake and responding to his name, resistant with nursing care, refusing his medications, stated, "No, I don't want them..", labile, unpredictable behavior, gets easily irritable when redirected, poor appetite, refusing to eat his meals, but an episode of drinking his supplement during diner, A/Ox2, impaired judgment, explained the pros and cons of his medications, but continue to refuse his medications, unable to formulate a viable plan for self care, continue to monitor for safety, continue to monitor V/S, continue with treatment plan.
[2017-06-30 19:56] VITALS: BP 140/83
--- NOTE | 2017-06-30 20:15 | NUR ---
RECEIVED PATIENT IN HIS ROOM. HE IS NOTED AWAKE A/O X 1. HE IS NOTED CALM, HOWEVER, REFUSED TO ANSWER ANY OTHER QUESTION THAT WAS ASKED BY THIS MUSICAL INSTRUMENT MAKER. HE SAID "I WILL TELL YOU LATER". HE IS EASILY IRRITABLE, GUARDED, AND SUSPICIOUS. BLUNTED AFFECT, POOR HISTORIAN. NO COMBATIVE/AGGRESSIVE BX NOTED AT THIS TIME. SAFETY EMPHASIS, WILL CONTINUE TO MONITOR CLOSELY.
[2017-06-30] MEDS: ATORVASTATIN 20 MG TABLET PO SCH (21:00)
--- NOTE | 2017-06-30 21:45 | NUR ---
PATIENT REFUSED LIPITOR AND CULTURELLE. HOWEVER, HE TOOK NAMENDA, KEPPRA AND DEPAKOTE. WILL CONTINUE TO MONITOR. SAFETY WAS EMPHASIS.
[2017-07-01] MEDS: PANTOPRAZOLE SODIUM 40 MG TABLET.DR PO SCH (06:58)
[2017-07-01 07:30] VITALS: BP 141/69
[2017-07-01] MEDS: ENSURE ENLIVE (VAN) 240 ML LIQUID PO SCH ×3 (08:00→16:11)
[2017-07-01] MEDS: PROTEIN SUPPLEMENT (PROSTAT) 30 ML LIQUID PO SCH ×3 (08:00→16:11)
[2017-07-01] MEDS: QUETIAPINE FUMARATE 25 MG TABLET PO SCH ×3 (09:00→16:10)
[2017-07-01] MEDS: ASCORBIC ACID 500 MG TABLET PO SCH (09:00)
[2017-07-01] MEDS: DIVALPROEX SPRINKLE 125 MG CAP.SPRINK PO SCH ×3 (09:00→20:45)
[2017-07-01] MEDS: BENAZEPRIL HCL 20 MG TABLET PO SCH (09:00)
[2017-07-01] MEDS: MULTIVIT, IRON, MIN NO. 8, FA TABLET PO SCH (09:00)
[2017-07-01] MEDS: LEVETIRACETAM 500 MG TABLET PO SCH ×3 (09:00→20:45)
[2017-07-01] MEDS: AMLODIPINE 10 MG TABLET PO SCH (09:00)
[2017-07-01] MEDS: LACTOBACILLUS RHAMNOSUS GG 1 EACH CAPSULE PO SCH ×2 (09:00→20:44)
[2017-07-01] MEDS: MEMANTINE HCL 5 MG TABLET PO SCH ×3 (09:00→20:46)
[2017-07-01] MEDS: ASPIRIN 81 MG TAB.CHEW PO SCH (09:00)
[2017-07-01 15:21] VITALS: BP 157/84
[2017-07-01 20:10] VITALS: BP 141/66
[2017-07-01] MEDS: ATORVASTATIN 20 MG TABLET PO SCH ×2 (20:35→20:45)
--- NOTE | 2017-07-01 21:30 | NUR ---
Pharmacy Note: HS medications were scanned and poured for Pt. When offered, Pt refused all medications despite prompting. Pt educted on risks and benefits. Medications wasted.
[2017-07-02] MEDS: PANTOPRAZOLE SODIUM 40 MG TABLET.DR PO SCH ×2 (06:09→11:28)
[2017-07-02 07:30] VITALS: BP 138/84
[2017-07-02] MEDS ORDERED: HALOPERIDOL LACTATE 5 MG/1 ML VIAL IM PRN (11:15)
[2017-07-02] MEDS: LEVETIRACETAM 500 MG TABLET PO SCH ×2 (11:28→20:50)
[2017-07-02] MEDS: DIVALPROEX SPRINKLE 125 MG CAP.SPRINK PO SCH ×2 (11:28→20:50)
[2017-07-02] MEDS: QUETIAPINE FUMARATE 25 MG TABLET PO SCH ×2 (11:30→16:49)
[2017-07-02] MEDS: ASPIRIN 81 MG TAB.CHEW PO SCH (11:30)
[2017-07-02] MEDS: ASCORBIC ACID 500 MG TABLET PO SCH (11:30)
[2017-07-02] MEDS: MULTIVIT, IRON, MIN NO. 8, FA TABLET PO SCH (11:30)
[2017-07-02] MEDS: MEMANTINE HCL 5 MG TABLET PO SCH ×2 (11:31→20:50)
[2017-07-02] MEDS: BENAZEPRIL HCL 20 MG TABLET PO SCH (11:31)
[2017-07-02] MEDS: AMLODIPINE 10 MG TABLET PO SCH (11:31)
[2017-07-02] MEDS: PROTEIN SUPPLEMENT (PROSTAT) 30 ML LIQUID PO SCH ×3 (11:33→16:49)
[2017-07-02] MEDS: ENSURE ENLIVE (VAN) 240 ML LIQUID PO SCH ×3 (11:33→16:49)
[2017-07-02] MEDS: LACTOBACILLUS RHAMNOSUS GG 1 EACH CAPSULE PO SCH ×2 (11:34→20:50)
[2017-07-02 15:02] VITALS: BP 135/66
[2017-07-02 20:09] VITALS: BP 129/62
[2017-07-02] MEDS: ATORVASTATIN 20 MG TABLET PO SCH (20:50)
[2017-07-03] MEDS: PANTOPRAZOLE SODIUM 40 MG TABLET.DR PO SCH (06:22)
[2017-07-03 07:30] VITALS: BP 136/72
[2017-07-03] MEDS: PROTEIN SUPPLEMENT (PROSTAT) 30 ML LIQUID PO SCH (08:00)
[2017-07-03] MEDS: ENSURE ENLIVE (VAN) 240 ML LIQUID PO SCH (08:00)
--- NOTE | 2017-07-03 08:50 | NUR ---
Discharge Note: Patient will be discharged home today with his caregiver [[address] [facility] [place] [address]; [phone]] via private transportation at 10:30am. Spoke with patients caregiver, Audra Arevalo ([phone]) (face sheet updated with this information). Caregiver is willing to provide transportation and is agreeable with discharge plans. Patient is aware and agreeable with discharge plans and is stating he will be compliant with his care and with Home Health when at home. Patient was referred to [facility] for [facility] Follow-up ([phone]). Patient was also referred to Medicare-accepting Psychiatrists as well. Spoke with Karen at [facility] ([phone]). Patient was accepted for Physical Therapy and Medication Management with start of care date on 07/04/17.
[2017-07-03] MEDS: DIVALPROEX SPRINKLE 125 MG CAP.SPRINK PO SCH (08:56)
[2017-07-03] MEDS: LEVETIRACETAM 500 MG TABLET PO SCH (08:56)
[2017-07-03] MEDS: BENAZEPRIL HCL 20 MG TABLET PO SCH (08:56)
[2017-07-03] MEDS: LACTOBACILLUS RHAMNOSUS GG 1 EACH CAPSULE PO SCH (08:56)
[2017-07-03] MEDS: ASPIRIN 81 MG TAB.CHEW PO SCH (08:56)
[2017-07-03 08:57] VITALS: BP 136/72
[2017-07-03] MEDS: MEMANTINE HCL 5 MG TABLET PO SCH (08:57)
[2017-07-03] MEDS: QUETIAPINE FUMARATE 25 MG TABLET PO SCH (08:57)
[2017-07-03] MEDS: ASCORBIC ACID 500 MG TABLET PO SCH (08:57)
[2017-07-03] MEDS: MULTIVIT, IRON, MIN NO. 8, FA TABLET PO SCH (08:57)
[2017-07-03] MEDS: AMLODIPINE 10 MG TABLET PO SCH (08:57)
--- NOTE | 2017-07-03 11:20 | NUR ---
Pt discharged to home via private car with caregiver and home health as ordered. Assisted to parking lot via w/c by staff. ID band removed. VS WNL. Pt in fair condition. No s/s of acute distress noted. Denies pain. Denies SI/HI, CFS. Discharge summary/instructions given to patient and caregiver. Discharged with belongings.
== END 2017-07-03 12:00 | disposition home health service (06) | DRG 885 ==
LOC: GPS 20:53
PROVIDERS: ADMIT Psychiatry & Neurology Psychiatry; ATTEND Internal Medicine
DX: F23 Brief psychotic disorder (principal); E44.0 Moderate protein-calorie malnutrition; F03.90 Unspecified dementia, unspecified severity, without behavioral disturbance, psychotic disturbance, mood disturbance, and anxiety; G40.909 Epilepsy, unspecified, not intractable, without status epilepticus; Z68.26 Body mass index [BMI] 26.0-26.9, adult; Z87.442 Personal history of urinary calculi; F41.9 Anxiety disorder, unspecified; F32.9 Major depressive disorder, single episode, unspecified; Z86.73 Personal history of transient ischemic attack (TIA), and cerebral infarction without residual deficits; Z91.14 Patient's other noncompliance with medication regimen; I10 Essential (primary) hypertension
CPT/HCPCS: 97116; 97530